=== PATIENT | female | born 1970 | race Caucasian/White ===

== ENCOUNTER 2017-01-20 22:03 | Emergency (ER) | payer BC, OTHER ==
[~2017-01-20] VITALS: Ht 162.6 cm; Wt 131.6 kg
[~2017-01-20 22:03] MED LIST: ASPI81TA28 PO; ATV/1 PO; CETI10TA84 PO; DEXL60CA4 PO; FLUT0.15 NAE; LISI-461 PO; MONT1TAB3 PO; RANI300T2 PO; SULF800T23 PO
[2017-01-20 22:07] VITALS: TEMP 36.7; Ht 162.6 cm; Wt 131.6 kg
[2017-01-20] MEDS ORDERED: METO50TA7 PO (22:22)
[2017-01-20] MEDS ORDERED: ONDANSETRON INJ 2 MG/ML 2 ML VIAL IV STA (23:18)
[2017-01-20] MEDS ORDERED: SODIUM CHLORIDE 0.9% 1000ML 1,000 ML IV STA (23:18)
[2017-01-20] MEDS ORDERED: SODIUM CHLORIDE 0.9% 500ML 500 ML IV STA (23:18)
[2017-01-20 23:28] VITALS: O2SAT 99
[2017-01-20] MEDS ORDERED: OPTIRAY 320 IV PRN (23:30)
[2017-01-20 23:48] LABS: URINE APPEARANCE CLOUDY (CLEAR); URINE BILIRUBIN NEG (NEG); URINE COLOR YELLOW; URINE EPITHELIAL CELL AUTO 20-30 /lpf (0-5); URINE NITRITE NEG (NEG); URINE PH 5.5 (4.5-7.5); URINE SPECIFIC GRAVITY 1.014 (1.000-1.030); UROBILINOGEN NEG (NEG); ZZUR CULT IF INDIC CLEAN CATCH YES
[2017-01-20 23:51] LABS: MANUAL MICROSCOPIC REQUIRED? NO; REVIEW REQ? NO
[2017-01-21] LABS: BASO % 0.4 %; BASO ABS # 0.04 K/uL (0-0.2); COMPLETE YES; EOS % 1.9 %; HEMATOCRIT 36.3 % (37-47); IG% 0.2 %; LYMPH % 28.4 %; LYMPH ABS # 2.58 K/uL (1.2-3.4); MEAN CELL VOLUME 84.4 fL (80-100); MEAN CORPUSCULAR HEMOGLOBIN 28.8 pg (25-34); MEAN CORPUSCULAR HGB CONC 34.2 g/dl (32-36); MONO % 5.6 %; NEUT % 63.5 %; PLATELET COUNT 260 K/uL (130-400); WHITE BLOOD COUNT 9.09 K/uL (4.8-10.8)
[2017-01-21 00:28] LABS: ALT/SGPT 19 U/L (12-78); AST/SGOT 10 U/L (15-37); BLOOD UREA NITROGEN 7 mg/dl (7-18); BUN/CREATININE RATIO 9.1 (10-20); CALCIUM 8.7 mg/dl (8.5-10.1); CARBON DIOXIDE 27 mmol/L (21-32); CHLORIDE 108 mmol/L (98-107); CREATININE 0.75 mg/dl (0.60-1.20); GLUCOSE 94 mg/dl (70-99); POTASSIUM 3.6 mmol/L (3.5-5.1); SODIUM 141 mmol/L (136-145)
[2017-01-21 00:33] LABS: ALKALINE PHOSPHATASE 68 U/L (45-117)
[2017-01-21 00:36] LABS: PREG INTERNAL NEGATIVE QC NEG CLEAR BACKGROUND; PREG INTERNAL POSITIVE QC POS CONTROL LINE
--- NOTE | 2017-01-21 04:34 | EMERGENCY ROOM VISIT NOTE ---
History First contact with patient: 22:54 Chief Complaint: ABDOMINAL PAIN Stated Complaint: RLQ PAIN Nursing Triage Summary: RLQ pain since Wednesday Nausea today History of Present Illness The patient is a 46 year old female who presents to the Emergency Room with complaints of nausea and right lower quadrant abdominal pain for the past few days that pain coming and going severity currently 5 out of 10. Nothing makes it better or worse. Patient states occasionally she gets chest pains throughout the past few months. She's never gone to the doctor for this. The abdominal pain does not radiate. Patient denies dyspnea, vomiting, diarrhea, urinary symptoms. Status post cholecystectomy. She still has her appendix. No colonoscopy in the past. No family history of Crohn's, UC, colon cancer. Review of Systems See HPI for pertinent positives & negatives. A total of 10 systems reviewed and were otherwise negative. 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 (5) Diaphragmatic Hernia (6) Esophageal Reflux (7) Gastrointestinal disorder (8) Headache (9) Hypertension (10) Morbid Obesity (11) Peptic Ulcer Nos (12) Precordial chest pain Surgical Problems: (1) History of esophagogastroduodenoscopy (2) History of tubal ligation (3) Hx of cholecystectomy Social History Smoking Status: Never Smoker Alcohol Use: none Drug Use: none Marital Status: Housing Status: lives with significant other Occupation Status: employed Current/Historical Medications Scheduled Aspirin (Aspirin Ec), 81 MG PO DAILY Cetirizine (Zyrtec), 10 MG PO HS Dexlansoprazole (Dexilant), 60 MG PO QAM Metoprolol Succ (Toprol Xl) (Toprol-Xl), 50 MG PO DAILY Montelukast Sodium (Singulair), 10 MG PO DAILY Ranitidine (Zantac), 300 MG PO HS Scheduled PRN Fluticasone Propionate (Nasal) (Flonase Allergy Relief), 1 SPRAY MERY DAILY PRN for Nasal Congestion Lorazepam (Ativan), 1 MG PO HS PRN for Anxiety Allergies Coded Allergies: Penicillins (Unverified Allergy, Intermediate, RASH, 07/03/15) Physical Exam Vital Signs Date Time Temp Pulse Resp B/P (MAP) Pulse Ox O2 Delivery O2 Flow Rate FiO2 01/21/17 02:49 72 18 123/61 100 Room Air 01/21/17 00:49 84 18 139/72 95 Room Air 01/20/17 23:57 75 18 130/75 96 Room Air 01/20/17 23:54 88 01/20/17 23:28 99 Room Air 01/20/17 23:28 99 Room Air 01/20/17 22:07 36.7 89 20 163/101 98 Room Air Physical Exam VITALS: Vitals are noted on the nurse's note and reviewed by myself. Vital signs stable. GENERAL: Pleasant female, in no acute distress, nondiaphoretic, well-developed well-nourished. SKIN: The skin was without rashes, erythema, edema, or bruising. There is no tenting of the skin. Capillary reflex less than 2 seconds. HEAD: Normocephalic atraumatic. EARS: External auditory canals clear, tympanic membranes pearly simpson without erythema or effusion bilaterally. EYES: Pupils equal round and reactive to light and accommodation. Conjunctivae without injection, sclerae without icterus. Extraocular movements intact. NOSE: Patent, turbinates without inflammation or discharge. MOUTH: Mucous membranes moist. Pharynx without erythema or exudate. Uvula midline. Airway patent. Tongue does not deviate. NECK: Supple without nuchal rigidity. No lymphadenopathy. No thyromegaly. Cervical spine is nontender. No JVD. HEART: Regular rate and rhythm without murmurs gallops or rubs. LUNGS: Clear to auscultation bilaterally without wheezes, rales or rhonchi. No dullness to percussion. No retractions or accessory muscle use. ABDOMEN: Positive bowel sounds x 4. Normal tympanic percussion. Soft, protuberant, obese, tender to palpation right lower quadrant, no CVA tenderness , without masses or organomegaly. Sykes sign negative. No guarding or rebound tenderness. MUSCULOSKELETAL: No muscle atrophy, erythema, or edema noted. NEURO: Patient was alert and oriented to person place and time. Normal sensation to light and sharp touch. No focal neurological deficits. Medical Decision & Procedures Laboratory Results 01/20/17 23:45 Red Blood Count 4.30, Mean Corpuscular Volume 84.4, Mean Corpuscular Hemoglobin 28.8, Mean Corpuscular Hemoglobin Concent 34.2, Mean Platelet Volume 10.0, Neutrophils (%) (Auto) 63.5, Lymphocytes (%) (Auto) 28.4, Monocytes (%) (Auto) 5.6, Eosinophils (%) (Auto) 1.9, Basophils (%) (Auto) 0.4, Neutrophils # (Auto) 5.77, Lymphocytes # (Auto) 2.58, Monocytes # (Auto) 0.51, Eosinophils # (Auto) 0.17, Basophils # (Auto) 0.04 01/20/17 23:45 Test 01/20/17 22:24 01/20/17 23:45 01/20/17 23:47 Urine Color YELLOW Urine Appearance CLOUDY (CLEAR) Urine pH 5.5 (4.5-7.5) Urine Specific [place] 1.014 (1.000-1.030) Urine Protein NEG (NEG) Urine Glucose (UA) NEG (NEG) Urine Ketones NEG (NEG) Urine Occult Blood NEG (NEG) Urine Nitrite NEG (NEG) Urine Bilirubin NEG (NEG) Urine Urobilinogen NEG (NEG) Urine Leukocyte Esterase TRACE (NEG) Urine WBC (Auto) 5-10 /hpf (0-5) Urine RBC (Auto) 0-4 /hpf (0-4) Urine Hyaline Casts (Auto) 1-5 /lpf (0-5) Urine Epithelial Cells (Auto) 20-30 /lpf (0-5) Urine Bacteria (Auto) 1+ (NEG) White Blood Count 9.09 K/uL (4.8-10.8) Red Blood Count 4.30 M/uL (4.2-5.4) Hemoglobin 12.4 g/dL (12.0-16.0) Hematocrit 36.3 % (37-47) Mean Corpuscular Volume 84.4 fL (80-100) Mean Corpuscular Hemoglobin 28.8 pg (25-34) Mean Corpuscular Hemoglobin Concent 34.2 g/dl (32-36) Platelet Count 260 K/uL (130-400) Mean Platelet Volume 10.0 fL (7.4-10.4) Neutrophils (%) (Auto) 63.5 % Lymphocytes (%) (Auto) 28.4 % Monocytes (%) (Auto) 5.6 % Eosinophils (%) (Auto) 1.9 % Basophils (%) (Auto) 0.4 % Neutrophils # (Auto) 5.77 K/uL (1.4-6.5) Lymphocytes # (Auto) 2.58 K/uL (1.2-3.4) Monocytes # (Auto) 0.51 K/uL (0.11-0.59) Eosinophils # (Auto) 0.17 K/uL (0-0.5) Basophils # (Auto) 0.04 K/uL (0-0.2) RDW Standard Deviation 40.0 fL (36.4-46.3) RDW Coefficient of Variation 13.3 % (11.5-14.5) Immature Granulocyte % (Auto) 0.2 % Immature Granulocyte # (Auto) 0.02 K/uL (0.00-0.02) Anion Gap 6.0 mmol/L (3-11) Est Creatinine Clear Calc Drug Dose 129.2 ml/min Estimated GFR () 112.4 Estimated GFR (Non- 96.9 BUN/Creatinine Ratio 9.1 (10-20) Calcium Level 8.7 mg/dl (8.5-10.1) Total Bilirubin 0.3 mg/dl (0.2-1) Direct Bilirubin < 0.1 mg/dl (0-0.2) Aspartate Amino Transf (AST/SGOT) 10 U/L (15-37) Alanine Aminotransferase (ALT/SGPT) 19 U/L (12-78) Alkaline Phosphatase 68 U/L (45-117) Troponin I < 0.015 ng/ml (0-0.045) Total Protein 7.2 gm/dl (6.4-8.2) Albumin 3.6 gm/dl (3.4-5.0) Lipase 144 U/L (73-393) Human Chorionic Gonadotropin, Qual NEG (NEG) Bedside Troponin I < 0.030 ng/ml (0-0.045) Medications Administered Medications (Trade) Dose Ordered Sig/Wood Route Start Time Stop Time Status Last Admin Dose Admin Sodium Chloride 1,000 ml @ 125 mls/hr Q8H STAT IV 01/20/17 23:18 01/21/17 07:17 01/21/17 03:48 125 MLS/HR Sodium Chloride 500 ml @ 999 mls/hr Q31M STAT IV 01/20/17 23:18 01/20/17 23:48 DC 01/20/17 23:50 999 MLS/HR Ondansetron HCl (Zofran Inj) 4 mg NOW STAT IV 01/20/17 23:18 01/20/17 23:19 DC 01/20/17 23:47 4 MG ED Course Prior records/ancillary studies reviewed. Triage Nursing notes reviewed. Additional history obtained from family The patient's history was concerning for abdominal pain. Differential diagnosis: Etiologies such as appendicitis, cardiac, diverticulitis, PUD, biliary pathology , UTI, pancreatitis, obstruction, mesenteric ischemia, aortic pathology, infections, inflammatory bowel disease, renal colic, as well as others were entertained. Physical examination findings: As above. ER treatment provided: Zofran, IV fluids On reassessment the patient felt better. Diagnostics interpreted by me: ECG: Normal sinus, normal intervals, no acute ST-T wave changes. Impression normal sinus rhythm interpreted by myself The labs revealed stable H&H. Negative urine. Negative hCG Imaging studies: US PELVIC/ENDOVAG: Comparison: CT abdomen and pelvis earlier same day. Endometrial echo complex measures 1.2 cm and contains cystic structures measuring up to 1.4 x 0.9 x 0.8 cm. Qualitative test is reportedly negative and patient is post tubal ligation. These likely represent subendometrial cysts in the differential includes adenomyosis and tamoxifen effects. Uterus measures 11.6 x 5.9 x 7.6 cm. Right ovary measures 5.3 x 2.2 x 4.3 cm and contains a ovarian cyst measuring 4.7 x 2.8 x 4.0 cm and containing a single septation. Blood flow demonstrated in right ovary. Left ovary not visualized. No free fluid. Radiologist: Casey Burroughs MD Chest x-ray with no acute consolidation, pneumothorax or free air per my interpretation CT ABDOMEN & PELVIS: Normal appendix. There is a 5.1 cm right ovarian cystic lesion. Suggest correlation with ultrasound. Fallopian tube closure devices Cholecystectomy. The remaining solid organs are unremarkable. No free air or free fluid. No evidence of bowel obstruction. Fat filled umbilical hernia. Radiologist: Casey Burroughs MD Exam and history seem consistent with right ovarian cyst/agnes. Patient did not have acute abdomen on exam. She is well-appearing. She is tolerating fluids. She is advised follow-up with technician automated equipment and family care in a few days or here in the ER sooner for vomiting, fevers, vomiting, worsening signs or symptoms or as needed. She is advised to repeat pelvic ultrasound in 6 weeks for resolution of cyst. She was strongly encouraged to follow-up with NATIONAL VAN OWNER OPERATOR. By the evaluation outlined above emergent etiologies such as appendicitis, diverticulitis, PUD, biliary pathology, UTI, pancreatitis, obstruction, mesenteric ischemia, aortic pathology, infections, inflammatory bowel disease, renal colic, as well as others were deemed relatively unlikely. The pt informed about the findings as listed above. All questions were answered and pleased with the treatment. Return instructions were outlined and the patient was discharged in stable condition. Outpatient prescription management: Marlynfrcaleb Referral: The patient was referred back to their primary care physician and technician automated equipment for follow-up in 2 to 3 days for a recheck of the current condition. Medical Decision As above Impression Primary Impression: Right ovarian cyst Departure Information Dispostion Home / Self-Care Condition GOOD Referrals Carlos Galindo M.D. (PCP) Patient Instructions [facility] Additional Instructions Repeat pelvic ultrasound in 6 weeks for resolution of cyst. Ibuprofen(Motrin, Advil) may be used for fever or pain. Use 600mg every six hours as needed. Take with food. Avoid using more than 2400mg in a 24 hour period. Do not use 2400mg per day for more than three consecutive days without physician direction. Prolonged inappropriate use can lead to stomach upset or ulcers. (AND/OR) Acetaminophen(Tylenol) may be used for fever or pain. Use 1000mg every six hours as needed. Avoid using more than 3000mg in a 24 hour period. Rest and drink plenty of fluids as tolerated. Continue current medications. Avoid strenuous activities and anything that worsens your pain. Resume normal activities once your symptoms resolve. Return to the ER immediately for worsening or persistent abdominal pain, vomiting, fevers, chest pains, difficulty breathing, worsening of your condition , or as needed. Follow up with your primary physician and [employer] OPERATOR in 2-3 days for a recheck of your current condition.
[2017-01-21 04:45] VITALS: BP 126/84; PULSE 81; O2SAT 98
--- NOTE | 2017-01-21 06:51 | DIAGNOSTIC IMAGING REPORT ---
CHEST ONE VIEW PORTABLE CLINICAL HISTORY: Chest pain. COMPARISON STUDY: Chest radiograph and chest CT July 03, 2015. FINDINGS: Lung volumes are normal. Lungs are clear. No pneumothorax or pleural effusion is present. There is no evidence of pulmonary edema. Cardiomediastinal silhouette is normal. Appearance of the chest is unchanged. IMPRESSION: No acute cardiopulmonary findings. Electronically signed by: Anish Mendenhall M.D. 01/21/2017 6:49 AM Dictated Date/Time: 01/21/2017 6:49 AM
--- NOTE | 2017-01-21 07:07 | DIAGNOSTIC IMAGING REPORT ---
ABD/PELVIS IV CONTRAST ONLY HISTORY: 46 years-old Female acute lower abdominal pain COMPARISON: Pelvic ultrasound of same day TECHNIQUE: Multiple axial CT images of the abdomen and pelvis were obtained following the intravenous administration of 116 mL Optiray 320. A dose lowering technique was used consistent with the principals of JERRY. FINDINGS: The lung bases are generally clear. There is no pneumoperitoneum. The imaged inferior cardiac chambers are within normal limits. Prior cholecystectomy. The liver, spleen, pancreas and adrenal glands appear normal. Bilateral kidneys are within normal limits. The ureters and urinary bladder are unremarkable. There is a 4.3 x 3.2 cm cystic structure of the right adnexum. Bilateral fallopian tube occlusion devices are present. There is a moderate amount of fluid within the endometrial canal, better evaluated on the pelvic ultrasound of same day. The abdominal aorta is normal in course and caliber without bulky adenopathy. There is no bowel obstruction or focal bowel wall thickening. Appendix is normal. There are a few noninflamed diverticula of the ascending colon. Patient obesity is noted. 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 IMPRESSION: 1. No acute intra-abdominal or intrapelvic abnormality identified. Normal appendix. 2. Cystic lesion of the right adnexum, 4.3 cm is better evaluated on pelvic ultrasound of same day. 3. Postsurgical changes of prior cholecystectomy and bilateral fallopian tube occlusion. 4. Fluid of the endometrial canal is also better evaluated on comparison pelvic ultrasound. The above report was generated using voice recognition software. It may contain grammatical, syntax or spelling errors. Electronically signed by: Alfredo Dean M.D. 01/21/2017 7:05 AM Dictated Date/Time: 01/21/2017 6:58 AM
--- NOTE | 2017-01-21 07:37 | DIAGNOSTIC IMAGING REPORT ---
PELVIC ULTRASOUND, TRANSABDOMINAL AND TRANSVAGINAL HISTORY: Right lower quadrant pain. Right adnexal lesion on CT. COMPARISON: Abdomen and pelvis CTA 1017. FINDINGS: Uterus: 11.6 x 7.6 x 5.9 cm. Endometrial stripe: 1.2 cm in thickness. There are a few small cysts within the endometrium with the largest at the fundus measuring 1.4 x 0.9 cm. Right ovary: 5.3 x 4.3 x 3.2 cm. This contains a 4.7 cm cyst which demonstrates a single thin septation. Normal color flow within the surrounding ovarian tissue. Left ovary: Obscured by overlying bowel gas. Miscellaneous:No pelvic free fluid. IMPRESSION: 1. A 4.7 cm cyst within the right ovary which contains a single septation. 2. The left ovary was not visualized. 3. A few small cystic foci within the endometrium with the largest measuring 1.4 cm. By report, the patient has a negative test. These favor endometrial cysts. Electronically signed by: Raji Crane M.D. 01/21/2017 7:36 AM Dictated Date/Time: 01/21/2017 7:32 AM
== END 2017-01-21 04:45 | disposition home or self-care (01) ==
LOC: C.EDB 22:04 → C.EDA 01-21 04:45
DX: N83.201 Unspecified ovarian cyst, right side (principal); K21.9 Gastro-esophageal reflux disease without esophagitis; F41.9 Anxiety disorder, unspecified; J45.909 Unspecified asthma, uncomplicated; K29.40 Chronic atrophic gastritis without bleeding; I10 Essential (primary) hypertension; E66.01 Morbid (severe) obesity due to excess calories; K27.9 Peptic ulcer, site unspecified, unspecified as acute or chronic, without hemorrhage or perforation; Z79.82 Long term (current) use of aspirin; Z79.899 Other long term (current) drug therapy

== ENCOUNTER → 2017-02-04 | Outpatient (CLI) | payer OTHER ==
[~2017-02-04] MED LIST changes: -LISI-461 PO; +METO50TA7 PO; -SULF800T23 PO
== END | disposition home or self-care (01) ==
LOC: C.PAPS 14:02
PROVIDERS: ATTEND Physician Assistant
DX: Z12.4 Encounter for screening for malignant neoplasm of cervix (principal)

== ENCOUNTER → 2017-07-30 | Outpatient (CLI) | payer OTHER ==
[~2017-07-30] MED LIST changes: -METO50TA7 PO; +METO50TA8 PO; +VNTHFA/IN INH
== END | disposition home or self-care (01) ==
LOC: C.PATHSPEC 18:02
PROVIDERS: ATTEND Obstetrics & Gynecology
DX: N94.89 Other specified conditions associated with female genital organs and menstrual cycle (principal); N85.00 Endometrial hyperplasia, unspecified

== ENCOUNTER → 2017-08-11 | Outpatient (CLI) | payer OTHER ==
[2017-08-11 17:35] LABS: BASO % 0.4 %; BASO ABS # 0.03 K/uL (0-0.2); EOS ABS # 0.14 K/uL (0-0.5); HEMATOCRIT 39.6 % (37-47); HEMOGLOBIN 13.5 g/dL (12.0-16.0); IG# 0.01 K/uL (0.00-0.02); LYMPH % 31.5 %; LYMPH ABS # 2.23 K/uL (1.2-3.4); MEAN CELL VOLUME 84.1 fL (80-100); MEAN CORPUSCULAR HEMOGLOBIN 28.7 pg (25-34); MEAN CORPUSCULAR HGB CONC 34.1 g/dl (32-36); MEAN PLATELET VOLUME 10.5 fL (7.4-10.4); MONO % 6.3 %; MONO ABS # 0.45 K/uL (0.11-0.59); NEUT % 59.7 %; NEUT ABS # 4.23 K/uL (1.4-6.5); PLATELET COUNT 286 K/uL (130-400); RED CELL DISTRIBUTION WIDTH CV 12.9 % (11.5-14.5); RED CELL DISTRIBUTION WIDTH SD 39.3 fL (36.4-46.3); WHITE BLOOD COUNT 7.09 K/uL (4.8-10.8)
== END | disposition home or self-care (01) ==
LOC: C.LAB1850 17:19
PROVIDERS: ATTEND Obstetrics & Gynecology
DX: Z01.818 Encounter for other preprocedural examination (principal)

== ENCOUNTER → 2017-08-30 | Day surgery (SDC) | payer OTHER ==
[2017-08-10 08:02] VITALS: BMI 49.0
[2017-08-10 08:08] VITALS: BMI 49.0
[2017-08-17 14:01] VITALS: Ht 162.6 cm; Wt 128.9 kg
--- NOTE | 2017-08-17 14:20 | PAT Medication Instructions ---
Service Date Aug 17, 2017. Current Home Medication List Albuterol Hfa (Ventolin Hfa), 2-4 PUFFS INH Q6H PRN for Shortness of Breath Aspirin (Aspirin Ec), 81 MG PO HS Cetirizine (Zyrtec), 10 MG PO HS Dexlansoprazole (Dexilant), 60 MG PO QAM Fluticasone Propionate (Nasal) (Flonase Allergy Relief), 1 SPRAY MERY DAILY PRN for Nasal Congestion Lorazepam (Ativan), 1 MG PO HS PRN for Anxiety Metoprolol Succ (Toprol Xl) (Toprol-Xl), 50 MG PO QAM Montelukast Sodium (Singulair), 10 MG PO HS Ranitidine (Zantac), 300 MG PO HS Medication Instructions For Your Scheduled Surgery -Follow your surgeon's instructions for: Aspirin (Aspirin Ec), 81 MG PO HS - Take the following medications the morning of surgery with a sip of water: Albuterol Hfa (Ventolin Hfa), 2-4 PUFFS INH Q6H PRN for Shortness of Breath (if needed) Dexlansoprazole (Dexilant), 60 MG PO QAM Fluticasone Propionate (Nasal) (Flonase Allergy Relief), 1 SPRAY MERY DAILY PRN for Nasal Congestion (if needed) Lorazepam (Ativan), 1 MG PO HS PRN for Anxiety (if needed) Metoprolol Succ (Toprol Xl) (Toprol-Xl), 50 MG PO QAM - Take the following medications as scheduled the night before surgery: Albuterol Hfa (Ventolin Hfa), 2-4 PUFFS INH Q6H PRN for Shortness of Breath (if needed) Cetirizine (Zyrtec), 10 MG PO HS Fluticasone Propionate (Nasal) (Flonase Allergy Relief), 1 SPRAY MERY DAILY PRN for Nasal Congestion (if needed) Montelukast Sodium (Singulair), 10 MG PO HS Ranitidine (Zantac), 300 MG PO HS If you have any questions please call us at [phone] or [phone] or [phone]
[2017-08-17 15:35] LABS: CREATININE 0.75 mg/dl (0.60-1.20)
[2017-08-17 15:36] LABS: POTASSIUM 4.1 mmol/L (3.5-5.1)
[~2017-08-30] VITALS: Ht 162.6 cm; Wt 128.9 kg
[~2017-08-30] MED LIST changes: +ATROPINE SULFATE 0.1 MG/ML 5ML SYR IV PRN; +DEXAMETHASONE SOD INJ 4 MG/ML VIAL ONE; +EpHEDrine SULFATE INJ 50 MG/ML AMP IV PRN; +FENTANYL CITRATE INJ 50 MCG/1 ML 2 ML VIAL IV PRN; +FENTANYL CITRATE INJ 50 MCG/1 ML 2 ML VIAL ONE; +FLUMAZENIL 0.1 MG/1 ML 10 ML VIAL IV PRN; +HYDROmorphone INJ 2 MG/ML SYR/VIAL IV PRN; +KETOROLAC TROMETHAMINE 30 MG/ML VIAL ONE; +LABETALOL HCL IV 5 MG/ML 20ML IV PRN; +LIDOCAINE HCL 2% 2 ML VIAL (20MG/ML) ONE; +LIDOCAINE HCL 2% JELLY 30 ML TUBE EXT ONE; +MEPERIDINE HCL 25 MG/ML CARP IV PRN; +MIDAZOLAM HCL 1 MG/ML 2ML VIAL ONE; +NALOXONE HCL 0.4 MG/1 ML VIAL/CARP IV PRN; +ONDANSETRON INJ 2 MG/ML 2 ML VIAL IV PRN; +ONDANSETRON INJ 2 MG/ML 2 ML VIAL ONE; +OXYCODONE/ACETAMINOPHEN 5-325 TAB PO PRN; +PHENYLEPHRINE 100MCG/ML 5ML SYR IV PRN; +PROMETHAZINE HCL INJ 25 MG in SODIUM CHLORIDE 0.9% 50ML 50 ML IV PRN; +PROPOFOL IV EMULSION 10 MG/ML 20 ML VIAL IV ONE; +ROCURONIUM BROMIDE 10 MG/ML 5 ML VIAL IV ONE; +SODIUM CHLORIDE 0.9% 1000ML 1,000 ML IV SCH; +SUCCINYLCHOLINE CHLORIDE 20 MG/ML 10 ML VIAL IV ONE
[2017-08-30 06:28] VITALS: BP 148/86; PULSE 86; TEMP 37.2; O2SAT 97
--- NOTE | 2017-08-30 07:12 | History & Physical Bridge Note ---
H&P Re-Evaluation Bridge Note: I have examined the patient, reviewed the History & Physical and in the interval since the performance of the History & Physical I have noted the following changes of clinical significance: No changes noted
--- NOTE | 2017-08-30 08:00 | [facility] Post Operative Brief Note ---
Immediate Operative Summary Operative Date Aug 30, 2017. Pre-Operative Diagnosis Complex Endometrial Hyperplasia Post-Operative Diagnosis Same Procedure(s) Performed Hysteroscopy, Fractional D&C with use of Myosure device Surgeon Yue Mancilla DO Senior Credit Analyst Surgeon(s) none Estimated Blood Loss 5ml Findings See Below Bilateral tubal ostia seen, moderate amt fluffy endometrium, no polyps Fluids (cc crystalloids) 1000ml Specimens 1. Endocervical Curettings 2. Endometrial Curettings Drains None Bladder emptied 300ml prior to procedure Anesthesia Type General Complication(s) none Disposition Accompanied Pt To Recover: no Disposition: Recovery Room / PACU
--- NOTE | 2017-08-30 08:03 | Discharge Instructions ---
Discharge Instructions Date of Service Aug 30, 2017. Visit Reason for Visit: Endometrial Hyperplasia Discharge Discharge Diagnosis / Problem: Same Discharge Goals Goal(s): Diagnostic testing Activity Recommendations Activity Limitations: per Instructions/Follow-up section Anesthesia . Post Anesthesia Instructions: If you have had General Anesthesia or IV Sedation: * Do not drive today. * Resume driving when surgeon permits. * Do not make important decisions or sign legal documents today. * Call surgeon for: 1. Temperature elevations greater than 101 degrees F. 2. Uncontrollable pain. 3. Excessive bleeding. 4. Persistent nausea and vomiting. 5. Medication intolerance (nausea, vomiting or rash). * For nausea and vomiting use only clear liquids such as: tea, soda, bouillon until nausea subsides, then gradually increase diet as tolerated. * If you have any concerns or questions, call your surgeon's office. If physician is unavailable and it is an emergency, call 911 or go to the nearest emergency room. . Instructions / Follow-Up Instructions / Follow-Up ACTIVITY RECOMMENDATIONS: * Avoid tampons, douching, hot tubs, pools, and intercourse until bleeding has stopped. * May shower as usual. * No strenuous activity for 24-48 hours. After 24-48 hours, you may do anything you feel like doing (driving and sports are okay). SPECIAL CARE INSTRUCTIONS: Special Diet: * Mild nausea may occur in the immediate post-operative period. * Take clear liquids such as tea, cola or bouillon until all nausea has subsided; you may then resume your normal diet. Special Care: * Light bleeding and vaginal spotting can last from a few days to 3-4 weeks. Call your doctor if bleeding becomes heavier than the heaviest part of your period. * Check your temperature twice a day for one week. If it goes above 100.4 degrees Fahrenheit (38.0 Celsius), notify your doctor. * Call your doctor's office for an appointment for 6 weeks after your surgery. FOLLOW-UP VISIT: Call your doctor's office for an appointment for 6 weeks after your surgery. Diet Recommendations Recommended Home Diet: resume previous diet Procedures Procedures Performed: Hysteroscopy, Fractional D&C with use of Myosure device Pending Studies Studies pending at discharge: yes List of pending studies: Pathology reports Medical Emergencies . Who to Call and When: Medical Emergencies: If at any time you feel your situation is an emergency, please call 911 immediately. . Non-Emergent Contact Non-Emergency issues call your: Primary Care Provider, Field Attendant . . "Provider Documentation" section prepared by Jessie Mancilla. .
--- NOTE | 2017-08-30 08:34 | [facility] Operative Report ---
Operative Report Operative Date Aug 30, 2017. Pre-Operative Diagnosis Complex endometrial hyperplasia Post-Operative Diagnosis Same as preop Procedure(s) Performed Hysteroscopy, Dilation and Curettage, Polypectomy Surgeon Dr. Mancilla Top Precipitator Operator Surgeon(s) none Estimated Blood Loss 5 cc Findings Bilateral tubal ostia seen, moderate amt fluffy endometrium, no polyps Fluids 1000ml Specimens A: endocervical curettings B: endometrial curettings Drains None Bladder emptied 300ml prior to procedure Anesthesia Type General Complication(s) none Disposition no Recovery Room / PACU Indications Patient is a 47-year-old who underwent endometrial biopsy with Dr. Rodriguez for thickening of endometrial lining on ultrasound. Endometrial biopsy revealed complex hyperplasia however pathology could not determine whether this was with atypia or without atypia. She was recommended to have dilation and curettage in the operating room to obtain a larger sample for further evaluation. Description of Procedure Patient was seen in the preoperative holding area where risks benefits alternatives to surgery were reviewed she elected to proceed with the case. All questions were answered informed consent had been previously obtained in the office under no duress. The patient was taken to the operating room where general anesthesia was administered she was prepared and draped in the usual sterile fashion with feet in yellowfin stirrups in the dorsal lithotomy position. Timeout was confirmed. A weighted speculum was placed in the vagina the cervix is visualized in its anterior lip was grasped with a single-tooth tenaculum. An endocervical curettage was performed with a Kevorkian curette. Next the uterus was sounded to 10 cm. The cervix was gently dilated to admit a hysteroscope. Hysteroscope was inserted pictures were taken bilateral tubal ostia were visualized. Using the John-sure device a curettage was undertaken of the entire endometrial cavity. The hysteroscope was withdrawn, and a gentle curettage was undertaken with a sharp curette, all instruments were removed from the vagina the patient tolerated the procedure well. Fluid deficit 200 mL. The patient has a 2 week follow-up appointment with Dr. Ybarra to review review results and plan future treatment. I attest to the content of the Intraoperative Record and any orders documented therein. Any exceptions are noted below.
[2017-08-30 09:10] VITALS: BP 142/71; PULSE 70; TEMP 36.4; O2SAT 96
--- NOTE | 2017-08-30 09:41 | Anesthesiology Progress Note ---
Anesthesia Post Op Note Date & Time Aug 30, 2017 at 09:41 Vital Signs Pain Intensity: 0 Vital Signs Past 12 Hours Date Time Temp Pulse Resp B/P (MAP) Pulse Ox O2 Delivery O2 Flow Rate FiO2 08/30/17 09:10 36.4 70 16 142/71 96 Room Air 08/30/17 08:55 36.8 69 16 132/77 97 Room Air 08/30/17 08:45 36.8 70 16 127/81 100 Room Air 08/30/17 08:35 65 16 141/86 100 Oxymask 10 08/30/17 08:25 68 16 138/83 100 Oxymask 10 08/30/17 08:15 36.7 75 16 144/79 100 Oxymask 10 08/30/17 06:28 37.2 86 18 148/86 (106) 97 Room Air Notes Mental Status: alert / awake / arousable, participated in evaluation Pt Amnestic to Procedure: Yes Nausea / Vomiting: adequately controlled Pain: adequately controlled Airway Patency, RR, SpO2: stable & adequate BP & HR: stable & adequate Hydration State: stable & adequate Anesthetic Complications: no major complications apparent
[2017-08-30 09:45] VITALS: BP 137/82; PULSE 70; TEMP 36.3; O2SAT 99
== END | disposition home or self-care (01) ==
LOC: C.ACU 05:56
PROVIDERS: ATTEND Obstetrics & Gynecology
DX: N85.01 Benign endometrial hyperplasia (principal); J45.909 Unspecified asthma, uncomplicated; K21.9 Gastro-esophageal reflux disease without esophagitis; I10 Essential (primary) hypertension; K29.50 Unspecified chronic gastritis without bleeding; E66.01 Morbid (severe) obesity due to excess calories; Z90.49 Acquired absence of other specified parts of digestive tract; Z79.82 Long term (current) use of aspirin; Z88.0 Allergy status to penicillin; Z68.42 Body mass index [BMI] 45.0-49.9, adult; Z83.49 Family history of other endocrine, nutritional and metabolic diseases; Z82.49 Family history of ischemic heart disease and other diseases of the circulatory system